=== PATIENT | female | born 1995 | race Caucasian/White ===

== ENCOUNTER 2017-07-07 20:43 | Emergency (ER) | payer BC ==
[~2017-07-07] VITALS: Ht 157.5 cm; Wt 67.0 kg
[2017-07-07] MEDS ORDERED: NAPROXEN500 MG PO (21:35)
[2017-07-07 21:52] VITALS: BP 130/74
== END 2017-07-07 21:52 | disposition home or self-care (01) ==
LOC: EME 20:43
DX: M77.11 Lateral epicondylitis, right elbow (principal); F17.200 Nicotine dependence, unspecified, uncomplicated
CPT/HCPCS: 99281; 99283